=== PATIENT | male | born 1985 | race Caucasian/White ===

== ENCOUNTER 2016-07-21 20:13 | Emergency (ER) | payer MEDICAID ==
[~2016-07-21] VITALS: Ht 185.4 cm; Wt 95.3 kg
[~2016-07-21 20:13] MED LIST: CIPRO 500MG TA500 MG PO; DARVOCET-N 1001 EACH PO; ERYTHROCIN STE500 M1 PO; IBU-8800 MG PO; K-DUR20 MEQ PO; NAPROXEN SODIU500 MG PO; NOMEDS *; PHENERGAN 25MG.25 M1 PO; ULTRAM50 MG PO; VIBRA-TABS100 MG PO; VICODIN 5/500 T1 TAB PO; VOLTAREN75 MG PO; ZITHROMAX Z PA250 MG PO
--- OUTSIDE RECORDS SUMMARY | 2016-07-21 20:42 | External Medical Summary Rpt ---
Author Author , Organization [employer] Address Unknown Phone Unavailable Care Team Providers Care Veterinary Surgery Technologist Name Role Phone CHENINEMARV LUND, VELASQUEZ Unavailable Unavailable [facility] Unavailable Unavailable PHYSICIANS, [facility] DI JACQUELYN, Unavailable Unavailable DI JACQUELYN NICHELLE KIKE, NICHELLE Unavailable Unavailable KIKE GREVER MAR, GREVER Unavailable Unavailable MAR [facility], Unavailable Unavailable [facility] Unavailable Unavailable [facility], [facility] Elle Wilkinson MD, Unavailable Unavailable Elle Berry MD, Unavailable Unavailable Evan Berry MD Purpose Continuity of Care Document - 02-21-2013 through 2016 Problems Code Diagnosis DOS Provider Status 11009 EDEMA OF 08-04-2014 [place] [facility] ORGANS 54965 ING DAVID 07-31-2014 [facility] W/O MENTION EMERGENCY PHYSICIANS OBST/GANGRE N UNILAT/UNSP EC 5289 OTHER&UNSPE 01-12-2014 [facility] CIFIED PHYSICIANS DISEASES GROUP THE ORAL SOFT TISSUES 47541 OTHER 08-10-2013 [place] [facility] [place] [address] HEAD 08-10-2013 [place] INJURY, MEDICAL UNSPECIFIED IM[facility]ING ASS 893.0 893.0 OPEN 02-22-2013 [place] WOUND OF [facility] V64.2 V64.2 NO 02-22-2013 [place] PROC/PATIEN [facility] E849.0 E849.0 02-21-2013 [place] ACCIDENT IN [facility] E917.3 E917.3 02-21-2013 [place] FURNIT W/O [facility] Allergies, Adverse Reactions, Alerts Type Drug Allergy Adverse Reaction to Substance Substance Reaction Severity Penicillin I-RASH Intermediate Meperidine Unknown Unknown Amoxicillin Unknown Unknown Penicillin V Unknown Unknown Medications Na ND Rx Da Fi Fi Am Da Di Ph RX Ph St me C No te ll ll ou ys ag ar # ys at rm s nt no ma ic us Or Da si cy ia de te s n re d TR 65 01 0 No AM 16 -0 AD 20 5- Lo OL 62 20 ng 71 14 er HC 0 L Ac 50 ti ve MG TA BL ET Vital Signs 02-21-2013 02:53 Name Value Interpretat Reference Comment ion Range BP 70 mm[Hg] Diastolic BP Systolic 135 mm[Hg] Heart 96 /min Rate/Pulse O2% 95 % Respiratory 18 /min Rate 02-21-2013 02:51 Name Value Interpretat Reference Comment ion Range BP 70 mm[Hg] Diastolic BP Systolic 135 mm[Hg] Heart 96 /min Rate/Pulse O2% 95 % Respiratory 18 /min Rate Procedures Procedure DOS Code Location Performer Comment 83626 [place] DI SCROTUM & [address] [place] [address] [place] [facility] HEAD/BRAI 4 MEDICAL KEVON N W/O IMAGING CONTRAST ASS MATERIAL Encounters Encounter Start End Date Code Location Performer Type Date EMERGENCY 15794 [facility] GREVER 5 5 EMERGENCY MAR DEPARTMEN T VISIT PHYSICIAN MODERATE S SEVERITY OFFICE 22281 [facility] NICHELLE OUTPATIEN 4 4 PHYSICIAN KIKE T NEW 20 S GROUP MINUTES Emergency ARINA Berry MD (ER) 4 00:30 4 00:39 [facility] Emergency ARINA Wilkinson MD (ER) 4 02:12 4 02:54 [place]
--- OUTSIDE RECORDS SUMMARY | 2016-07-21 20:42 | External Medical Summary Rpt ---
Author Author [employer], [employer] Organization [employer] Address Unknown Phone Unavailable
--- OUTSIDE RECORDS SUMMARY | 2016-07-21 20:42 | External Medical Summary Rpt ---
Author Author , Organization [employer] Address Unknown Phone Unavailable Purpose Continuity of Care Document - 10-06-1998 through 2016 Immunization Name Date Route CVX Reacti Commen Provid Is Given on t er Refuse d MMR Histor H149 No 1998 ical Inform ation - Source Unspec ified
--- OUTSIDE RECORDS SUMMARY | 2016-07-21 20:42 | External Medical Summary Rpt ---
Author Author , Organization [employer] Address Unknown Phone Unavailable Care Team Providers Care Bottle Packer Name Role Phone CHENINEMARV LUND, VELASQUEZ Unavailable Unavailable [facility] Unavailable Unavailable PHYSICIANS, [facility] DI JACQUELYN, Unavailable Unavailable DI JACQUELYN NICHELLE KIKE, NICHELLE Unavailable Unavailable KIKE GREVER MAR, GREVER Unavailable Unavailable MAR [facility], Unavailable Unavailable [facility] Unavailable Unavailable [facility], [facility] Elle Wilkinson MD, Unavailable Unavailable Elle Berry MD, Unavailable Unavailable Evan Berry MD Purpose Continuity of Care Document - 02-21-2013 through 2016 Problems Code Diagnosis DOS Provider Status 62526 EDEMA OF 08-04-2014 [place] [facility] ORGANS 58257 ING DAVID 07-31-2014 [facility] W/O MENTION EMERGENCY PHYSICIANS OBST/GANGRE N UNILAT/UNSP EC 5289 OTHER&UNSPE 01-12-2014 [facility] CIFIED PHYSICIANS DISEASES GROUP THE ORAL SOFT TISSUES 60618 OTHER 08-10-2013 [place] [facility] [place] [place] [address] HEAD 08-10-2013 [place] INJURY, MEDICAL UNSPECIFIED [facility] ASS 893.0 893.0 OPEN 02-22-2013 [place] WOUND OF [facility] V64.2 V64.2 NO 02-22-2013 [place] PROC/PATIEN [facility] E849.0 E849.0 02-21-2013 [place] ACCIDENT IN [facility] E917.3 E917.3 02-21-2013 [place] FURNIT W/O [facility] Allergies, Adverse Reactions, Alerts Type Drug Allergy [...] Procedures Procedure DOS Code Location Performer Comment 05512 [place] DI SCROTUM & 5 [place] [address] [place] [facility] HEAD/BRAI 4 MEDICAL KEVON N W/O IMAGING CONTRAST ASS MATERIAL Encounters Encounter Start End Date Code Location Performer Type Date EMERGENCY 82600 [facility] GREVER 5 5 EMERGENCY MAR DEPARTMEN T VISIT PHYSICIAN MODERATE S SEVERITY OFFICE 94942 [facility] NICHELLE OUTPATIEN 4 4 PHYSICIAN KIKE T NEW 20 S GROUP MINUTES Emergency ARINA Berry MD (ER) 4 00:30 4 00:39 [facility] Emergency ARINA Wilkinson MD (ER) 4 02:12 4 02:54 [facility]
--- OUTSIDE RECORDS SUMMARY | 2016-07-21 20:42 | External Medical Summary Rpt ---
Author Author , Organization [employer] Address Unknown Phone Unavailable Care Team Providers Care Triple Valve Mechanic Name Role Phone BEINEKE KEVON, JULIOKE Unavailable Unavailable [facility] Unavailable Unavailable PHYSICIANS, [facility] DI JACQUELYN, Unavailable Unavailable DI JACQUELYN NICHELLE KIKE, NICHELLE Unavailable Unavailable KIKE GREVER MAR, GREVER Unavailable Unavailable MAR [facility], Unavailable Unavailable [facility] Unavailable Unavailable [facility], [facility] Purpose Continuity of Care Document - 08-10-2013 through 2016 Problems Code Diagnosis DOS Provider Status 16830 EDEMA OF 08-04-2014 [place] [facility] ORGANS 29777 ING DAVID 07-31-2014 [facility] W/O MENTION EMERGENCY PHYSICIANS OBST/GANGRE N UNILAT/UNSP EC 5289 OTHER&UNSPE 01-12-2014 [facility] CIFIED PHYSICIANS DISEASES GROUP THE ORAL SOFT TISSUES 34913 OTHER 08-10-2013 [place] [facility] [place] [place] [address] HEAD 08-10-2013 [place] INJURY, MEDICAL UNSPECIFIED [facility]ING ASS Procedures Procedure DOS Code Location Performer Comment 56865 [place] DI SCROTUM & 5 [place] [address] [facility] HEAD/BRAI 4 MEDICAL KEVON N W/O IMAGING CONTRAST ASS MATERIAL Encounters Encounter Start End Date Code Location Performer Type Date EMERGENCY 61544 [facility] GREVER 5 5 EMERGENCY MAR DEPARTMEN T VISIT PHYSICIAN MODERATE S SEVERITY OFFICE 41958 [facility] NICHELLE OUTPATIEN 4 4 PHYSICIAN KIKE T NEW 20 S GROUP MINUTES
--- OUTSIDE RECORDS SUMMARY | 2016-07-21 20:42 | External Medical Summary Rpt ---
Author Author , Organization [employer] Address Unknown Phone Unavailable Care Team Providers Care Sign Painter Helper Name Role Phone BEINEKE KEVON, JULIOKE Unavailable Unavailable [facility] Unavailable Unavailable PHYSICIANS, [facility] DI JACQUELYN, Unavailable Unavailable DI JACQUELYN NICHELEL KIKE, NICHELLE Unavailable Unavailable KIKE GREVER MAR, GREVER Unavailable Unavailable MAR [facility], Unavailable Unavailable [facility] Unavailable Unavailable IM[facility], [facility] Purpose Continuity of Care Document - 08-10-2013 through 2016 Problems Code Diagnosis DOS Provider Status 53439 EDEMA OF 08-04-2014 [place] [facility] ORGANS 11298 ING DAVID 07-31-2014 [facility] W/O MENTION EMERGENCY PHYSICIANS OBST/GANGRE N UNILAT/UNSP EC 5289 OTHER&UNSPE 01-12-[address] [facility] CIFIED PHYSICIANS DISEASES GROUP THE ORAL SOFT TISSUES 23851 OTHER 08-10-2013 [place] [facility] [place] [place] [address] HEAD 08-10-2013 [place] INJURY, MEDICAL UNSPECIFIED IMAGING ASS Procedures Procedure DOS Code Location Performer Comment 91971 [place] DI SCROTUM & 5 [place] [address] [place] [facility] HEAD/BRAI 4 MEDICAL KEVON N W/O IMAGING CONTRAST ASS MATERIAL Encounters Encounter Start End Date Code Location Performer Type Date EMERGENCY 78016 [facility] GREVER 5 5 EMERGENCY MAR DEPARTMEN T VISIT PHYSICIAN MODERATE S SEVERITY OFFICE [address] [facility] NICHELLE OUTPATIEN 4 4 PHYSICIAN KIKE T NEW 20 S GROUP MINUTES
[2016-07-21 20:52] LABS: LYMPH # 2.4 K/mm3 (0.7-4.5); LYMPH % 30.7 % (10-50)
[2016-07-21 20:56] LABS: HEMOGLOBIN 14.8 g/dL (14.1-18.0)
[2016-07-21 21:25] LABS: BUN 14 mg/dL (7-18)
[2016-07-21 21:44] LABS: GFR (ESTIMATED) 79 ML/MIN (>60)
[2016-07-21] MEDS ORDERED: LEVAQUIN 750 M750 MG PO (21:58)
[2016-07-21] MEDS ORDERED: MEDROL 4MG. DOSE4 MG PO (21:58)
[2016-07-21] MEDS ORDERED: ALBUTEROL-200 PUFFS/ IH (21:59)
[2016-07-21] MEDS ORDERED: BENZONATATE200 MG PO (22:00)
--- NOTE | 2016-07-21 22:00 | Emergency Room Report ---
History of Present Illness Time Seen by [id number] Presenting Problem in Triage Pt arrived:Walked Presenting Problem:C/O PAIN TO RIGHT SIDE OF CHEST, C/O COUGH WITH YELLOW AND BLOODY SPUTUM X 2 TO 3 WEEKS Onset of symptoms date/time:07/21/1606/03/1099 or onset unknown for: Treatment Prior to Arrival: [employer] Provided by: Sepsis Risk Assessment: Temp: 99.2 B/P: 148/92 MAP: 107 Pulse: 86 Resp: 18 Recent fever? N Clinical Suspician of Infection? N Mental Status: 1 - Regular (Normal Baseline) Sepsis Risk:Low Sepsis Risk Have you (or family members/close friends) recently traveled outside the [place]? N If Yes, where/when: Have you had exposure to infectious disease within the past month? N TB? Other? Specify: Source patient, RN notes reviewed, family, RN/MD Exam Limitations no limitations Comment This is a 30-year-old gentleman arriving to the emergency room with shortness of breath, productive cough, and chest pain. Patient advised that his complaints started approximately 3 weeks ago, gradually becoming more predominant. He has been running an objective fever for the past 2-3 days as well. Patient smokes one pack of cigarettes per day. He had a LEFT varicocele surgery repair years ago, which apparently requires intervention, per patient. He is scheduled to follow-up with a local urologist within the next couple of days, for this medical problem. ALLERGIES Coded Allergies: Penicillins (01/31/16) meperidine (From DEMEROL) (I-HIVES 01/31/16) History Medical History General CAD? No Angina: No OR: No Hypertension? No Hyperlipidemia? No CHF? No DVT? No PE? No COPD? No Asthma? No Anemia? No GERD? No Gastric ulcers? No GI Bleed? No Hernia? Yes Thyroid Problems? No Hypothyroidism? No CVA? No Seizures? No Diabetes? No End Stage Renal Disease? No UTI? No Stones? No GB Disease: No Nephritic Syndrome? No Asplenia? No Hepatitis? No Sickle Cell Disease? No Arthritis? No Migraines? No Cataracts? No Glaucoma? No MRSA? No HIV? No TB? No Anxiety? No Depression? No Cancer? No More? No Immunization Hx DT/Tetanus 1-4 YRS Surgical Hx Previous Surgery?Y L INGUINAL HERNIA REPAIR Social History Smoking Hx Smoker: Current Every Day Smoker Tobacco: Yes Type Cigarettes Packs/day < 1 Pack Are you/the child exposed to second-hand smoke: No Alcohol Alcohol: No Review of Systems All Other Systems Reviewed and Negative Constitutional see HPI, chills, diaphoresis, fever, weakness Respiratory cough, shortness of breath, wheezing Cardiovascular chest pain Physical Exam Vital Signs Vital Signs Date Time Temp Pulse Resp B/P Pulse O2 O2 Flow FiO2 Ox Delivery Rate 07/21 2208 99.2 86 18 148/92 99 07/21 2142 86 18 148/92 99 07/21 2056 83 18 153/80 99 07/21 2025 18 98 07/21 2014 99.2 95 18 152/85 98 General Appearance normal appearance, WD/WN, no apparent distress Respiratory Status Yes: trachea midline, chest symmetrical, tender on palpation. No: respiratory distress. Lung Sounds anterior: wheezing. posterior: wheezing. bilateral: wheezing. Cardiovascular normal exam, regular rate/rhythm, no peripheral edema, no gallop, no JVD, no murmur, no rub, normal peripheral pulses Gastrointestinal normal bowel sounds, normal exam, non tender, soft, no organomegaly Extremities non-tender, normal range of motion, normal inspection Male Genitalia circumcised, LEFT testicle (normal size and normal shape) wrapped in varicocele, somewhat tender to palpation. There is no inguinal hernia present either LEFT or RIGHT. The right testicle is normal size, normal shape, nontender. Neurologic alert, oil filters inspector II-XII nml as tested, normal exam, oriented x 3 Mental status normal mood/affect Skin intact, normal color, warm/dry Medical Decision Making LABS/Meds/Orders Pt receiving controlled substance in ED? No Comment Upon reevaluation patient appears medically stable, in no acute distress, clinically improving, with less wheezing. Advised patient of results obtained, consistent with pneumonia. Plan is to send patient home on antibiotics with short-acting beta agonists. Advised patient to follow up with PCP if no better within 2 days. He will keep his appointment with his urologist, as previously scheduled. Results/Orders Laboratory Tests 07/21/162024: Lactic Acid 1.2 07/21/162024: Sodium 140, Potassium 3.6, Chloride 104, Carbon Dioxide 28, BUN 14, Creatinine 1.1, Estimated Creat Clear 132, Estimated GFR (MDRD) 79, Glucose 93, Calcium 9.2 , Total Bilirubin 0.4, AST 18, ALT 24, Alkaline Phosphatase 86, Creatine Kinase 264, CK-MB (CK-2) Rel Index 0.2, CK and CKMB Interp 0.6, Troponin I < 0.02, Total Protein 7.8, Albumin 3.9, Globulin 3.9 H, Albumin/Globulin Ratio 1.0 L, WBC 8.0, RBC 5.02, Hgb 14.8, Hct 45.0, MCV 89.6, RDW 12.8, Plt Count 202, MPV 6.7 L, Gran % 59.8, Gran # 4.8, Lymphocytes % 30.7, Monocytes % 6.1, Eosinophils % 2.8, Basophils % 0.6, Lymphocytes # 2.4, Monocytes # 0.5, Eosinophils # 0.2, Basophils # 0.0, PUBS MCHC 32.9, MCH 29.5 Current Medication Orders Sig/Crow Start time Last Medication Dose Route Stop Time Status Admin Benzonatate 0 .STK-MED ONE 07/21 2206 DC PO Albuterol 2 PUFFS Q4H6 07/21 2199 DCD 07/21 IH 2207 Albuterol 0 .STK-MED ONE 07/21 2199 DC IH Benzonatate 200 MG ONCE ONE 07/21 2199 DC 07/21 PO 07/21 Miscellaneous 1 UNIT ONCE ONE 07/21 2199 DC 07/21 XX 07/21 Miscellaneous 0 .STK-MED ONE 07/21 2199 DC XX Levofloxacin 0 .STK-MED ONE 07/22 2103 DC .ROUTE Methylprednisolone 0 .STK-MED ONE 07/21 2102 DC Sodium Succinate .ROUTE Levofloxacin 750 MG ONCE ONE 07/21 2099 DC 07/21 PO 07/21 Methylprednisolone 125 MG ONCE ONE 07/21 2099 DC 07/21 Sodium Succinate IV 07/21 Albuterol/Ipratropium 0 .STK-MED ONE 07/21 2058 DC INH Albuterol/Ipratropium 3 ML ONCE ONE 07/21 2029 DC 07/21 INH 07/21 Aspirin 324 MG ONCE ONE 07/21 2029 DC 07/21 PO 07/21 Sodium Chloride 10 ML PRN PRN 07/21 2029 DCD IV 07/22 2020 Aspirin 0 .STK-MED ONE 07/21 2021 DC .ROUTE Orders Procedure Date/time Status RT REQUEST ALBUTEROL INHALER 07/21 2154 Active RT REQUEST DUONEB 07/21 2026 Active ELECTROCARDIOGRAM REQUEST 07/21 2020 Active IV SALINE LOCK 07/21 2020 Active MAINFRAME SYSTEMS PROGRAMMER 07/21 2020 Active CULTURE, BLOOD 07/21 2020 Active LACTIC ACID 07/21 2020 Complete CBC WITH AUTO DIFF 07/21 2020 Complete CARDIAC ENZYMES 07/21 2020 Complete CHEM 12 PROFILE 07/21 2020 Complete 12 LEAD EKG-MARINE (INITIAL) 07/21 UNK Active CM/EKG CM/power plant technician Rhythm Normal Sinus Rhythm Rate 85 Ectopy No Comments No acute ischemic changes EKG rate, NSR, rhythm, no evid. of ischemic chgs, no ectopy, normal QRS, normal TX, normal EKG, no EKG for comparison, non-spec. ST/Twave chgs, ST elevation, ST depression, LBBB, RBBB, ectopy, abnormal Q waves XRAY/CT/US XRAY/CT/US XRAY chest XR interpretation by reviewed by me, discussed w/radiologist Xray Results no infiltrates, normal heart size, normal lung inflation ruth Comment RIGHT middle lung infiltrate consistent with pneumonia per radiologist Departure Departure Time of Disposition 2154 Disposition DC Home or Self Care(routine) Clinical Impression Primary Impression: RAD (reactive airway disease) Secondary Impressions: Pneumonia Qualifiers: Pneumonia type: due to unspecified organism Laterality: right Lung location: lower lobe of lung Qualified Code: J18.1 - Lobar pneumonia, unspecified organism Condition STABLE Referrals Jamal GALO,Fortunato Cabello (Family): [facility] if not better Patient Instructions DI for Pneumonia -- Adult Additional Instructions Please follow up with your PCP if not better per discharge instructions. Take the meds prescribed as directed. Discharge Counseling Counseled pt/family regarding diagnosis, test results, medications/RX, home care, follow up needs Comment Please follow up with your PCP if not better per discharge instructions. Take the meds prescribed as directed. Prescriptions Current Visit Scripts Levofloxacin (Levaquin 750mg) 750 MG PO DAILY #9 TAB Methylprednisolone (Medrol Dose Caleb) 4 MG PO UD #1 CALEB TAKE DIRECTED ON PACKAGING Albuterol (Albuterol-Hfa Inhaler) 1 PUFF IH QID #1 INH Ref 2 Benzonatate 200 MG PO TIDP PRN cough #30 SGL ED Critical Care Critical Care No at 5443
[2016-07-21 22:09] VITALS: BP 148/92
--- NOTE | 2016-07-21 22:10 | RADIOLOGY REPORT PS360 ---
CHEST(2 VIEWS-NOT PORTABLE) COMPARISON: None HISTORY: Productive cough TECHNIQUE: PA and lateral chest FINDINGS: The lung english are well expanded. There are somewhat ill-defined opacity in the anterior aspect of the right middle lobe and also involving the right perihilar region. The right upper lobe and right lower lobe appear grossly clear and the left lung field is clear. Cardiac size is normal. There is no pleural fluid. IMPRESSION: Right perihilar and right middle lobe bronchopneumonia
== END 2016-07-21 22:10 | disposition home or self-care (01) ==
LOC: ER 20:13
PROVIDERS: Emergency Medicine
DX: J18.1 Lobar pneumonia, unspecified organism (principal); Z72.0 Tobacco use

== ENCOUNTER → 2016-11-25 | Outpatient (CLI) | payer MEDICAID ==
[~2016-11-25] MED LIST changes: +ALBUTEROL-200 PUFFS/ IH; +BENZONATATE200 MG PO; +LEVAQUIN 750 M750 MG PO; +MEDROL 4MG. DOSE4 MG PO
--- NOTE | 2016-11-25 10:25 | RADIOLOGY REPORT PS360 ---
US SCROTUM HISTORY: Testicular pain and swelling on the left ABD PAIN,TESTICULAR PAIN ORDERING PHYSICIAN: Linda Lopez APRN PATIENT AGE: 31 years COMPARISON: None FINDINGS: RIGHT TESTICLE: The right testicle has an unremarkable appearance measuring 4 x 1.6 x 2.7 cm. No testicular mass, hydrocele, spermatocele, or varicocele evident. Blood flow is noted to the right testicle. LEFT TESTICLE: The left testicle has an unremarkable appearance measuring4 x 1.5 x 3 cm. No mass, hydrocele, or spermatocele evident. Blood flow is noted to the left testicle. There is a small left varicocele. IMPRESSION: 1. No obvious testicular mass. The testicles and epididymides are unremarkable 2. Small left varicocele
--- NOTE | 2016-11-25 10:28 | RADIOLOGY REPORT PS360 ---
US ABD(COMPLETE-MULTI ORGANS HISTORY: Abdominal pain ABD PAIN,TESTICULAR PAIN ORDERING PHYSICIAN: Linda Lopez APRN PATIENT AGE: 31 years COMPARISON: None FINDINGS: PANCREAS:Unremarkable. No obvious mass or abnormal fluid collection. No ductal dilatation LIVER:No focal liver lesions demonstrated. Homogeneous echogenicity. No intrahepatic biliary ductal dilatation evident RIGHT KIDNEY:Unremarkable. Normal size and echogenicity. No hydronephrosis LEFT KIDNEY:Unremarkable. No hydronephrosis. Normal size and echogenicity. GALLBLADDER:No gallstones, gallbladder wall thickening, pericholecystic fluid, or biliary dilatation. AORTA:No evidence of aneurysmal dilatation. SPLEEN:Unremarkable. Normal size and echogenicity ASCITES:None demonstrated. IMPRESSION: Unremarkable abdominal ultrasound
== END ==
LOC: RAD 08:00
DX: R10.9 Unspecified abdominal pain (principal); N50.819 Testicular pain, unspecified

== ENCOUNTER 2017-01-21 14:00 | Emergency (ER) | payer MEDICAID ==
--- OUTSIDE RECORDS SUMMARY | 2017-01-21 14:07 | External Medical Summary Rpt | CCD ---
Author Author , LORELEI BARAJASMITZI Address Unknown Phone [email or web address] Care Team Providers Care Patent Solicitor Name Role Phone Elle Wilkinson MD, Unavailable Unavailable Elle Berry MD, Unavailable Unavailable Evan Berry MD Purpose Continuity of Care Document - 02-21-2013 through 2016 Problems Code Diagnosis DOS Provider Status 893.0 893.0 OPEN 02-22-2013 [place] WOUND OF [facility] V64.2 V64.2 NO 02-22-2013 [place] PROC/PATIEN [facility] E849.0 E849.0 02-21-2013 [place] ACCIDENT IN [facility] E917.3 E917.3 02-21-2013 [place] FURNIT W/O [facility] D72.829 ELEVATED WHITE BLOOD CELL COUNT, UNSPECIFIED I86.1 SCROTAL VARICES J18.9 PNEUMONIA, UNSPECIFIED ORGANISM J45.909 UNSPECIFIED ASTHMA, UNCOMPLICAT ED M54.5 LOW BACK PAIN R10.9 UNSPECIFIED ABDOMINAL PAIN Allergies, Adverse Reactions, Alerts Type Drug Allergy [...] O2% 95 % Respiratory 18 /min Rate Encounters Encounter Start End Date Code Location Performer Type Date Emergency ARINA Berry MD (ER) 4 00:30 4 00:39 [facility] Emergency ARINA Wilkinson MD (ER) 4 02:12 4 02:54 [facility]
--- OUTSIDE RECORDS SUMMARY | 2017-01-21 14:07 | External Medical Summary Rpt | CCD ---
Author Author , LORELEI MOSELEY Address Unknown Phone [email or web address] Immunization Name Date Rout CVX Reac Dose Comm Prov Is Faci e tion ent ider Refu lity Give sed n MMR 08-2 3 999 Hist H149 No H149 0-19 oric 99 al Info rmat ion - Sour ce Unsp ecif ied
--- OUTSIDE RECORDS SUMMARY | 2017-01-21 14:07 | External Medical Summary Rpt | CCD ---
Author Author [employer] Organization [employer] Address Unknown Phone Unavailable Purpose Continuity of Care Document - through 2016
--- OUTSIDE RECORDS SUMMARY | 2017-01-21 14:07 | External Medical Summary Rpt | CCD ---
Author Author , LORELEI MOSELEY Address Unknown Phone [email or web address] Immunization Name Date Rout CVX Reac Dose Comm Prov Is Faci e tion ent ider Refu lity Give sed n MMR 08-2 3 999 Hist H149 No H149 0-19 oric 99 al Info rmat ion - Sour ce Unsp ecif ied
--- OUTSIDE RECORDS SUMMARY | 2017-01-21 14:07 | External Medical Summary Rpt | CCD ---
Author Author , LORELEI BARAJASMITZI Address Unknown Phone [email or web address] Care Team Providers Care Evaporator Helper Name Role Phone Elle Wilkinson MD, Unavailable Unavailable Elle Berry MD, Unavailable Unavailable Evan Berry MD Purpose Continuity of Care Document - 02-21-2013 through 2016 Problems Code Diagnosis DOS Provider Status 893.0 893.0 OPEN 02-22-2013 [place] WOUND OF [facility] V64.2 V64.2 NO 02-22-2013 [place] PROC/PATIEN [facility] E849.0 E849.0 02-21-[address] [facility] E917.3 E917.3 02-21-2013 [place] FURNIT W/O [facility] D72.829 ELEVATED WHITE BLOOD CELL COUNT, [...] Berry MD (ER) 4 00:30 4 00:39 [facility] Emergency ARINA Wilkinson MD (ER) 4 02:12 4 02:54 [facility]
--- OUTSIDE RECORDS SUMMARY | 2017-01-21 14:08 | External Medical Summary Rpt ---
Author Author JENNMITZI [employer], [employer] Organization [employer] Address Unknown Phone Unavailable Results Lactate [Moles/volume] in Blood Observa Value Referen Units Interpr Notes Date tion ce etation Range Lactate 0.4 - 2.0 mmol/L Normal No Jul 4 [Moles/vo informati 2016 8:25 lume] in on in PM Blood source data CBC W Auto Differential panel in Blood Observa Value Referen Units Interpr Notes Date tion ce etation Range Basophils 0 - 0.2 K/MM3 Normal No Jul 4 informati 2016 8:25 [#/volume on in PM ] in source Blood by data Automated count Basophils 0.1 - 2.0 % Normal No Jul 21 /100 informati 2016 8:25 leukocyte on in PM s in source Blood by data Automated count Eosinophi 0.0 - 0.4 K/mm3 Normal No Jul 21 ls informati 2016 8:25 [#/volume on in PM ] in source Blood by data Automated count Eosinophi 0.1 - % Normal No Jul 21 ls/100 12.0 informati 2016 8:25 leukocyte on in PM s in source Blood by data Automated count Granulocy 1.3 - 8.0 K/mm3 Normal No Jul 4 jayshree informati 2016 8:25 [#/volume on in PM ] in source Blood by data Automated count Granulocy 37.0 - % Normal No Jul 21 jayshree/100 80.0 informati 2016 8:25 leukocyte on in PM s in source Blood by data Automated count Hematocri 42.0 - % Normal No Jul 21 t [Volume 52.0 informati 2016 8:25 on in PM Fraction] source of Blood data Hemoglobi 14.1 - g/dL No No Jul 21 n 18.0 informati informati 2016 8:25 [Mass/vol on in on in PM ume] in source source Blood data data Lymphocyt 0.7 - 4.5 K/mm3 Normal No Jul 4 es informati 2016 8:25 [#/volume on in PM ] in source Unspecifi data ed specimen by Automated count Lymphocyt 10 - 50 % Normal No Jose 4 es informati 2016 8:25 [#/volume on in PM ] in source Unspecifi data ed specimen by Automated count Erythrocy 27 - 31.2 pg Normal No Jose 4 te mean informati 2016 8:25 corpuscul on in PM ar source hemoglobi data n [Entitic mass] Erythrocy 31.8 - g/dl Normal No Jul 21 te mean 35.4 informati 2016 8:25 corpuscul on in PM ar source hemoglobi data n concentra tion [Mass/vol ume] by Automated count Erythrocy 82.2 - fl Normal No Jul 4 te mean 97.8 informati 2016 8:25 corpuscul on in PM ar volume source [Entitic data volume] by Automated count Monocytes 0.1 - 1.0 K/mm3 Normal No Jose 4 informati 2016 8:25 [#/volume on in PM ] in source Blood by data Automated count Monocytes 1.7 - 9.3 % Normal No Jose 4 /100 informati 2016 8:25 leukocyte on in PM s in source Blood by data Automated count Platelet 7.4 - fl Low No Jul 21 mean 10.4 informati 2016 8:25 volume on in PM [Entitic source volume] data in Blood by Automated count Platelets 142 - 424 K/mm3 Normal No Jose 4 informati 2017 8:25 [#/volume on in PM ] in source Blood data Erythrocy 4.6 - 6.2 M/mm3 Normal No Jose 4 jayshree informati 2017 8:25 [#/volume on in PM ] in source Amniotic data fluid Erythrocy 11.5 - % Normal No Jul 21 te 17.5 informati 2017 8:25 distribut on in PM ion width source [Entitic data volume] by Automated count Leukocyte 4.8 - K/MM3 Normal No Jose 4 s 10.8 informati 2016 8:25 [#/volume on in PM ] in source Blood data
== END 2017-01-21 14:10 | disposition left against medical advice (07) ==
LOC: UTC 14:00
DX: Z53.29 Procedure and treatment not carried out because of patient's decision for other reasons (principal); R07.89 Other chest pain

== ENCOUNTER 2017-01-25 17:19 | Emergency (ER) | payer MEDICAID ==
[~2017-01-25] VITALS: Ht 185.4 cm; Wt 85.3 kg
--- OUTSIDE RECORDS SUMMARY | 2017-01-25 17:28 | External Medical Summary Rpt | CCD ---
Author Author , LORELEI MOSELEY Address Unknown Phone [email or web address] Care Team Providers Care Daycare Worker Name Role Phone A Tammie CUI MD PSC, A Unavailable Unavailable Tammie CUI MD [facility] Unavailable Unavailable PHYSICIANS, [facility] Unavailable Unavailable INC, [facility] Unavailable Unavailable HOSPITAL P, [facility], Unavailable Unavailable [facility] Unavailable Unavailable [facility], [facility] KILPELA, KILPELA Unavailable Unavailable Elle Wilkinson MD, Unavailable Unavailable Elle Berry MD, Unavailable Unavailable Evan Berry MD Purpose Continuity of Care Document - 02-21-2013 through 2016 Problems Code Diagnosis DOS Provider Status [id number] LEFT 11-25-2016 [place] [facility]ULAR [facility] [id number] TESTICULAR 11-25-2016 [facility] UNSPECIFIED INC R109 UNSPECIFIED 11-25-2016 [place] ABDOMINAL MEDICAL [facility]IN [facility]ING ASS R300 DYSURIA 11-14-2016 Kimber CUI MD PSC J180 BRONCHOPNEU 07-21-2016 [place] [facility] UNSPECIFIED IMAGING ASS ORGANISM J181 LOBAR 07-21-2016 [place] [facility] P ORGANISM Z720 TOBACCO USE 07-21-2016 [facility] P 68889 EDEMA OF 08-04-2014 [place] [facility]ALE [facility]ICAL GENITAL IMAGING ASS ORGANS 20139 ING DAVID 07-31-2014 [facility] W/O MENTION EMERGENCY PHYSICIANS OBST/GANGRE N UNILAT/UNSP EC 8816 OTHER&UNSPE 01-12-2014 [facility] CIFIED PHYSICIANS DISEASES GROUP THE ORAL SOFT TISSUES 22033 OTHER 08-10-2013 [place] [facility] [place] [address] HEAD 08-10-2013 [place] INJURY, MEDICAL UNSPECIFIED IMAGING ASS 893.0 893.0 OPEN 02-22-2013 Martin WOUND OF [facility] V64.2 V64.2 NO 02-22-2013 Martin PROC/PATIEN [facility] E849.0 E849.0 02-21-2013 Martin ACCIDENT IN [facility] E917.3 E917.3 02-21-2013 Martin FURNIT W/O [facility] D72.829 ELEVATED WHITE BLOOD CELL COUNT, UNSPECIFIED 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 ti CL 10 5- 3- 00 00 SI ve OM 79 20 20 0 50 DE IN 50 17 17 43 E 1 21 PH 20 AR MA MG CY TA OF BL CY ET NT HI AN A IN C CI 16 09 10 10 5 00 EA Ac ND 71 -2 -[address] ti OF 40 8- 7- 00 00 SI ve LO 65 20 20 50 DE XA 20 17 17 31 CI 4 48 PH N AR HC MA L CY 50 0 OF MG CY NT TA HI B AN A IN C BE 69 06 06 30 10 00 HO Ac NZ 38 -0 -3 .0 00 ME ti ON 70 5- 0- 00 06 TO ve AT 12 20 20 08 WN AT 00 17 17 82 E 5 79 PH 20 AR 0 MA MG CY CA OF PS UL CY E NT HI AN A VE 00 06 06 18 17 00 HO Ac NT 17 -0 -3 .0 00 ME ti OL 30 5- 0- 00 06 TO ve IN 68 20 20 08 WN 22 17 17 82 HF 0 80 PH A AR 90 MA CY MC G OF IN [place] CY LE NT R HI AN A LE 68 06 06 9. 9 00 HO Ac VO 18 -0 -3 00 00 ME ti FL 00 5- 0- 0 06 TO ve OX 24 20 20 08 WN AC 22 17 17 82 IN 0 82 PH AR 75 MA 0 CY MG OF TA BL CY ET NT HI AN A ME 68 06 06 21 6 00 HO Ac TH 00 -0 -3 .0 00 ME ti YL 10 5- 0- 00 06 TO ve ND 00 20 20 08 WN ED 50 17 17 82 NI 1 81 PH SO AR LO MA NE CY 4 OF MG CY DO NT SE HI PK AN A TR 65 01 0 No AM 16 [...] Procedures Procedure DOS Code Location Performer Comment 67795 [facility] REAL INC INC TIME W/[place] [address] [facility] SCROTUM & 7 [facility] CONTENTS INC INC Encounters Encounter Start End Date Code Location Performer Type Date [facility] MARTIN - 7 7 [facility] OUTPATIEN INC T OFFICE 23788 Kimber RUCKER OUTPATIEN 7 7 SEE GALO T VISIT PSC 15 MINUTES Emergency ARINA Berry MD (ER) 4 00:30 4 00:39 [facility] Emergency ARINA Wilkinson MD (ER) 4 02:12 4 02:54 [facility]
--- OUTSIDE RECORDS SUMMARY | 2017-01-25 17:28 | External Medical Summary Rpt | CCD ---
Author Author , LORELEI MOSELEY Address Unknown Phone [email or web address] Care Team Providers Care Analyst Microbiology Lab Name Role Phone A Tammie CUI MD PSC, A Unavailable Unavailable Tammie CUI MD [facility] Unavailable Unavailable PHYSICIANS, [facility] Unavailable Unavailable INC, [facility] Unavailable Unavailable HOSPITAL P, [facility], Unavailable Unavailable [facility] Unavailable Unavailable IM[facility]ING [facility], [facility] KILPELA, KILPELA Unavailable Unavailable Elle Wilkinson MD, Unavailable Unavailable Elle Berry MD, Unavailable Unavailable Evan Berry MD Purpose Continuity of Care Document - 02-21-2013 through 2016 Problems Code Diagnosis DOS Provider Status [id number] LEFT 11-25-2016 [place] [facility] X12569 TESTICULAR 11-25-2016 [facility] UNSPECIFIED INC R109 UNSPECIFIED 11-25-2016 [place] ABDOMINAL [facility]ICAL PAIN IMAGING ASS R300 DYSURIA 11-14-2016 Kimber CUI MD PSC J180 BRONCHOPNEU 07-21-2016 [place] [facility] UNSPECIFIED IMAGING ASS ORGANISM J181 LOBAR 07-21-2016 [place] [facility] P ORGANISM Z720 TOBACCO USE 07-21-2016 [facility] P 11267 EDEMA OF 08-04-2014 [place] MALE MEDICAL GENITAL IMAGING ASS ORGANS 98297 ING DAVID 07-31-2014 [facility] W/O MENTION EMERGENCY PHYSICIANS OBST/GANGRE N UNILAT/UNSP EC 6454 OTHER&UNSPE 01-12-2014 [facility] CIFIED PHYSICIANS DISEASES GROUP THE ORAL SOFT TISSUES 04722 OTHER 08-10-2013 [place] ALTER[facility] [place] [address] HEAD 08-10-2013 [place] INJURY, MEDICAL UNSPECIFIED IMAGING ASS 893.0 893.0 OPEN 02-22-2013 Martin WOUND OF [facility] V64.2 V64.2 NO 02-22-2013 Martin PROC/PATIEN [facility] E849.0 E849.0 02-21-2013 Martin ACCIDENT IN [facility] E917.3 E917.3 02-21-2013 Martin FURNIT W/O [facility] D72.829 ELEVATED WHITE BLOOD CELL COUNT, [...] 09 10 10 5 00 EA Ac IA 71 -2 -[address] ti [...] 10 5- 0- 00 06 TO ve IA 00 20 20 08 WN ED 50 [...] Procedures Procedure DOS Code Location Performer Comment 33271 [facility] ABDOMINAL 7 [facility] REAL INC INC TIME W/[place] [address] [facility] VICENTE SCROTUM & 7 [facility] CONTENTS INC INC Encounters Encounter Start End Date Code Location Performer Type Date [facility] MARTIN - 7 7 MEM H[facility] OUTPATIEN INC T OFFICE [address]56 Kimber RUCKER OUTPATIEN 7 7 SEE GALO T VISIT PSC 15 MINUTES Emergency ARINA Berry MD (ER) 4 00:30 4 00:39 [facility] Emergency ARINA Wilkinson MD (ER) 4 02:12 4 02:54 [facility]
--- OUTSIDE RECORDS SUMMARY | 2017-01-25 17:29 | External Medical Summary Rpt | CCD ---
Author Author , LORELEI MOSELEY Address Unknown Phone [email or web address] Immunization Name Date Rout CVX Reac Dose Comm Prov Is Faci e tion ent ider Refu lity Give sed n MMR 08-2 3 999 Hist H149 No H149 0-19 oric 99 al Info rmat ion - Sour ce Unsp ecif ied
--- OUTSIDE RECORDS SUMMARY | 2017-01-25 17:29 | External Medical Summary Rpt | CCD ---
Author Author , LORELEI BARAJASMITZI Address Unknown Phone [email or web address] Care Team Providers Care Ward Aide Name Role Phone A Tammie CUI MD PSC, A Unavailable Unavailable Tammie CUI MD [facility] Unavailable Unavailable PHYSICIANS, [facility] Unavailable Unavailable INC, [facility] Unavailable Unavailable HOSPITAL P, [facility], Unavailable Unavailable [facility] Unavailable Unavailable IM[facility]ING [facility], [facility] KILPELA, KILPELA Unavailable Unavailable Purpose Continuity of Care Document - 08-10-2013 through 2016 Problems Code Diagnosis DOS Provider Status [id number] LEFT 11-25-2016 [place] TEST[facility]ULAR [facility] [id number] TESTICULAR 11-25-2016 [facility] UNSPECIFIED INC R109 UNSPECIFIED 11-25-2016 [place] ABDOMINAL MEDICAL PAIN IMAGING ASS R300 DYSURIA 11-14-2016 Kimber CUI MD PSC J180 BRONCHOPNEU 07-21-2016 [place] [facility] UNSPECIFIED IMAGING ASS ORGANISM J181 LOBAR 07-21-2016 [place] PNEUMONIA [facility] P ORGANISM Z720 TOBACCO USE 07-21-2016 [facility] P 12401 EDEMA OF 08-04-2014 [place] MALE MEDICAL GENITAL IMAGING ASS ORGANS 12084 ING DAVID 07-31-2014 [facility] W/O MENTION EMERGENCY PHYSICIANS OBST/GANGRE N UNILAT/UNSP EC 5289 OTHER&UNSPE 01-12-2014 [facility] CIFIED PHYSICIANS DISEASES GROUP THE ORAL SOFT TISSUES 59106 OTHER 08-10-2013 [place] ALTERATION [place] [address] HEAD 08-10-2013 [place] INJURY, MEDICAL UNSPECIFIED IMAGING ASS Medications Na ND Rx Da Fi Fi [...] 09 10 10 5 00 EA Ac WA 71 -2 -[address] ti [...] 10 5- 0- 00 06 TO ve WA 00 20 20 08 WN ED 50 17 17 82 NI 1 81 PH SO AR LO MA NE CY 4 OF MG CY DO NT SE HI PK AN A Procedures Procedure DOS Code Location Performer Comment 34373 J[facility] ABDOMINAL [facility] REAL INC INC TIME W/[place] [address] J[facility] VICENTE SCROTUM & 7 [facility] CONTENTS INC INC Encounters Encounter Start End Date Code Location Performer Type Date [facility] JULES Ruelas 7 [facility] OUTPATIEN INC T OFFICE [address] [facility] 7 SEE GALO T VISIT PSC 15 MINUTES
--- OUTSIDE RECORDS SUMMARY | 2017-01-25 17:29 | External Medical Summary Rpt | CCD ---
Author Author , LORELEI BARAJASMITZI Address Unknown Phone [email or web address] Care Team Providers Care Production Administrator Name Role Phone A Tammie CUI MD PSC, A Unavailable Unavailable Tammie CUI MD [facility] Unavailable Unavailable PHYSICIANS, [facility] Unavailable Unavailable INC, [facility] Unavailable Unavailable HOSPITAL P, [facility], Unavailable Unavailable [facility] Unavailable Unavailable IMAGING ASS, [facility] KILPELA, KILPELA Unavailable Unavailable Purpose Continuity of Care Document - 08-10-2013 through 2016 Problems Code Diagnosis DOS Provider Status [id number] LEFT 11-25-2016 [place] TESTICULAR MEDICAL PAIN IM[facility]ING ASS [id number] TESTICULAR 11-25-2016 [facility] UNSPECIFIED INC R109 UNSPECIFIED 11-25-2016 [place] ABDOMINAL MEDICAL PAIN IMAGING ASS R300 DYSURIA 11-14-2016 Kimber CUI MD PSC J180 BRONCHOPNEU 07-21-2016 [place] [facility] UNSPECIFIED IMAGING ASS ORGANISM J181 LOBAR 07-21-2016 [place] [facility] P ORGANISM Z720 TOBACCO USE 07-21-2016 [facility] P 29719 EDEMA OF 08-04-2014 [place] MALE MEDICAL GENITAL IMAGING ASS ORGANS 93024 ING DAVID 07-31-2014 [facility] W/O MENTION EMERGENCY PHYSICIANS OBST/GANGRE N UNILAT/UNSP EC 5289 OTHER&UNSPE 01-12-2014 [facility] CIFIED PHYSICIANS DISEASES GROUP THE ORAL SOFT TISSUES 32175 OTHER 08-10-2013 [place] [facility] [place] [place] [address] HEAD 08-10-2013 [place] INJURY, MEDICAL UNSPECIFIED IMAGING ASS Medications Na [...] 09 10 10 5 00 EA Ac PA 71 -2 -[address] ti [...] 10 5- 0- 00 06 TO ve PA 00 20 20 08 WN ED 50 17 17 82 NI 1 81 PH SO AR LO MA NE CY 4 OF MG CY DO NT SE HI PK AN A Procedures Procedure DOS Code Location Performer Comment 06052 JULES VICENTE ABDOMINAL 7 [facility] REAL [place] TIME W/[place] [address] JULES VICENTE SCROTUM & 7 [facility] CONTENTS INC INC Encounters Encounter Start End Date Code Location Performer Type Date [facility] JULES Ruelas 7 [facility] OUTPATIEN INC T OFFICE [address] [facility] 7 SEE GALO T VISIT PSC 15 MINUTES
--- OUTSIDE RECORDS SUMMARY | 2017-01-25 17:29 | External Medical Summary Rpt | CCD ---
Author Author , LORELEI MOSELEY Address Unknown Phone [email or web address] Immunization Name Date Rout CVX Reac Dose Comm Prov Is Faci e tion ent ider Refu lity Give sed n MMR 08-2 3 999 Hist H149 No H149 0-19 oric 99 al Info rmat ion - Sour ce Unsp ecif ied
[2017-01-25] MEDS ORDERED: LEVAQUIN500 MG PO (17:43)
[2017-01-25] MEDS ORDERED: ZOFRAN4 MG PO (17:44)
[2017-01-25] MEDS ORDERED: PREDNISONE 20MG20 MG PO (17:44)
[2017-01-25] MEDS ORDERED: DICYCLOMINE HCL20 MG PO (17:45)
[2017-01-25] MEDS ORDERED: VENTOLIN H0.09 MG/AC IH (17:45)
[2017-01-25] MEDS ORDERED: PROMETHAZI6.25 MG/1 PO (17:46)
[2017-01-25 18:29] VITALS: BP 132/78
--- NOTE | 2017-01-25 18:33 | Emergency Room Report ---
History of Present Illness Time Seen by 1826 Presenting Problem in Triage Pt arrived:Walked Presenting Problem:PT REPORTS "KNOT" ON L UPPER ABD, STATES NOTICIED AREA THIS MORNING. 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 N Clinical Suspician of Infection? N Mental Status: 1 - Regular (Normal Baseline) Sepsis Risk:Low Sepsis Risk Have you (or family members/close friends) recently traveled outside the [place]? N If Yes, where/when: Have you had exposure to infectious disease within the past month? N TB? Other? Specify: Patient states he has a hx of hernia. He is eating chips because he is hungry. He was sent over from [facility] for evaluation but when MD entered room, patient changed his mind, finished his chips and said he doesn't want to be seen in the ER. Therefore, no real encounter was done. He did not give complete hpi, ROS, and did not allow palpation or auscultation on examination. Our encounter was extremely truncatedand patient clearly did not want to be seen in the ED. ALLERGIES Coded Allergies: Penicillins (01/31/16) meperidine (From DEMEROL) (I-HIVES 01/31/16) Home Medications Reported Medications Levofloxacin (Levaquin 500MG) 500 MG PO DAILY ONDANSETRON HCL (Zofran 4MG Tab) 4 MG PO Q6HP PRN NAUSEA AND VOMITING Prednisone (Prednisone 20MG) 20 MG PO BID Dicyclomine Hcl (Dicyclomine Tab) 20 MG PO QID ALBUTEROL (Ventolin Hfa) 1 PUFF IH Q6H6 PROMETHAZINE HCL (Promethazine Hydrochloride) 6.25 MG PO Q6HP PRN COUGH History Medical History General CAD? No Angina: No VT: No Hypertension? No Hyperlipidemia? No CHF? No DVT? No PE? No COPD? No Asthma? No Anemia? No GERD? No Gastric ulcers? No GI Bleed? No Hernia? Yes Thyroid Problems? No Hypothyroidism? No CVA? No Seizures? No Diabetes? No End Stage Renal Disease? No UTI? No Stones? No BPH? No GB Disease: No Nephritic Syndrome? No Asplenia? No Hepatitis? No Sickle Cell Disease? No Arthritis? No Migraines? No Cataracts? No Glaucoma? No MRSA? No HIV? No TB? No Anxiety? No Depression? No Cancer? No More? No Immunization Hx DT/Tetanus 1-4 YRS Surgical Hx Previous Surgery?Y L INGUINAL HERNIA REPAIR Social History Smoking Hx Smoker: Current Every Day Smoker Tobacco: Yes Type Cigarettes Packs/day < 1 Pack Alcohol Alcohol: No Review of Systems All Other Systems Reviewed and Negative Gastrointestinal see HPI Physical Exam Vital Signs Vital Signs Date Time Temp Pulse Resp B/P Pulse O2 O2 Flow FiO2 Ox Delivery Rate 01/25 1738 97.6 78 18 132/78 97 General Appearance normal appearance, WD/WN Respiratory Status No: respiratory distress. Cardiovascular cardiac exam not performed due to AMA Neurologic alert Glascow Coma Scale Glascow Coma Scale Response Value EYE response: 4 Spontaneously 4 MOTOR response: 6 OBEYS 6 VERBAL response: 5 Oriented & Converses 5 Total 15 Skin intact Medical Decision Making LABS/Meds/Orders Pt receiving controlled substance in ED? No Departure Departure Time of Disposition 1828 Disposition Against Medical Advice Clinical Impression Primary Impression: Abdominal pain Qualifiers: Abdominal location: unspecified location Qualified Code: R10.9 - Unspecified abdominal pain Secondary Impressions: History of hernia repair Condition STABLE Referrals Linda Lopez APRN (Family) Additional Instructions Patient left AMA without MD evaluation, see above. ED Critical Care Critical Care No at 1832
--- NOTE | 2017-01-25 18:33 | Emergency Room Report ---
History of Present Illness Time Seen by 1826 Presenting Problem in Triage Pt arrived:Walked Presenting Problem:PT REPORTS "KNOT" ON L UPPER ABD, STATES NOTICIED AREA THIS MORNING. 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 N Clinical Suspician of Infection? N Mental Status: 1 - Regular (Normal Baseline) Sepsis Risk:Low Sepsis Risk Have you (or family members/close friends) recently traveled outside the [place]? N If Yes, where/when: Have you had exposure to infectious disease within the past month? N TB? Other? Specify: Patient states he has a hx of hernia. He is eating chips because he is hungry. He was sent over from [facility] for evaluation but when MD entered room, patient changed his mind, finished his chips and said he doesn't want to be seen in the ER. Therefore, no real encounter was done. He did not give complete hpi, ROS, and did not allow palpation or auscultation on examination. Our encounter was extremely truncatedand patient clearly did not want to be seen in the ED. ALLERGIES Coded Allergies: Penicillins (01/31/16) meperidine (From DEMEROL) (I-HIVES 01/31/16) Home Medications Reported Medications Levofloxacin (Levaquin 500MG) 500 MG PO DAILY ONDANSETRON HCL (Zofran 4MG Tab) 4 MG PO Q6HP PRN NAUSEA AND VOMITING Prednisone (Prednisone 20MG) 20 MG PO BID Dicyclomine Hcl (Dicyclomine Tab) 20 MG PO QID ALBUTEROL (Ventolin Hfa) 1 PUFF IH Q6H6 PROMETHAZINE HCL (Promethazine Hydrochloride) 6.25 MG PO Q6HP PRN COUGH History Medical History General CAD? No Angina: No [place]: No Hypertension? No Hyperlipidemia? No CHF? No DVT? No PE? No COPD? No Asthma? No Anemia? No GERD? No Gastric ulcers? No GI Bleed? No Hernia? Yes Thyroid Problems? No Hypothyroidism? No CVA? No Seizures? No Diabetes? No End Stage Renal Disease? No UTI? No Stones? No BPH? No GB Disease: No Nephritic Syndrome? No Asplenia? No Hepatitis? No Sickle Cell Disease? No Arthritis? No Migraines? No Cataracts? No Glaucoma? No MRSA? No HIV? No TB? No Anxiety? No Depression? No Cancer? No More? No Immunization Hx DT/Tetanus 1-4 YRS Surgical Hx Previous Surgery?Y L INGUINAL HERNIA REPAIR Social History Smoking Hx Smoker: Current Every Day Smoker Tobacco: Yes Type Cigarettes Packs/day < 1 Pack Alcohol Alcohol: No Review of Systems All Other Systems Reviewed and Negative Gastrointestinal see HPI Physical Exam Vital Signs Vital Signs Date Time Temp Pulse Resp B/P Pulse O2 O2 Flow FiO2 Ox Delivery Rate 01/25 1738 97.6 78 18 132/78 97 General Appearance normal appearance, WD/WN Respiratory Status No: respiratory distress. Cardiovascular cardiac exam not performed due to AMA Neurologic alert Glascow Coma Scale Glascow Coma Scale Response Value EYE response: 4 Spontaneously 4 MOTOR response: 6 OBEYS 6 VERBAL response: 5 Oriented & Converses 5 Total 15 Skin intact Medical Decision Making LABS/Meds/Orders Pt receiving controlled substance in ED? No Departure Departure Time of Disposition 1828 Disposition Against Medical Advice Clinical Impression Primary Impression: Abdominal pain Qualifiers: Abdominal location: unspecified location Qualified Code: R10.9 - Unspecified abdominal pain Secondary Impressions: History of hernia repair Condition STABLE Referrals Linda Lopez APRN (Family) Additional Instructions Patient left AMA without MD evaluation, see above. ED Critical Care Critical Care No at 1832
== END 2017-01-25 18:29 | disposition left against medical advice (07) ==
LOC: UTC 17:19 → ER 17:25
DX: R10.12 Left upper quadrant pain (principal); F17.210 Nicotine dependence, cigarettes, uncomplicated; Z88.0 Allergy status to penicillin